=== PATIENT | male | born 1960 | race African-American/Black ===

== ENCOUNTER 2017-12-30 11:38 | Emergency (ER) | payer OTHER ==
[~2017-12-30] VITALS: Ht 175.3 cm; Wt 73.0 kg
[2017-12-30] MEDS ORDERED: SODIUM CHLORIDE 0.9% 1,000 ML IV ONE ×2 (12:07→14:39)
[2017-12-30] MEDS ORDERED: LEVETIRACETAM 500MG PREMIX 100 ML IV ONE (12:15)
[2017-12-30] MEDS ORDERED: LORAZEPAM 2MG/ML CPJ IV ONE (12:15)
[2017-12-30 12:39] LABS: BASOPHILS % 0.7 % (0.0-2.0); EOSINOPHILS % 0.4 % (0.0-5.0); HEMATOCRIT. 47.5 % (42.0-52.0); HEMOGLOBIN. 16.1 g/dL (14.0-18.0); LYMPHOCYTES % 27.2 % (20.0-50.0); MEAN CORPUSCULAR HEMOGLOBIN 36.8 pg (28.0-32.0); MEAN CORPUSCULAR VOLUME 108.5 fL (80.0-94.0); MONOCYTES % 9.4 % (2.0-8.0); NEUTROPHILS % 62.3 % (40.0-76.0); PLATELET 162 x1000/uL (130-400); RED BLOOD CELL COUNT 4.38 mill/uL (4.7-6.1); RED CELL DISTRIBUTION WIDTH 13.7 % (11.6-14.6)
[2017-12-30 12:42] LABS: CHLORIDE 97 mEq/L (98-107)
[2017-12-30 12:45] LABS: PROTHROMBIN TIME 10.6 sec (9.4-11.6)
[2017-12-30 12:47] LABS: ETHANOL BLOOD < 10 mg/dL
[2017-12-30 12:48] LABS: AMMONIA 62 uMol/L (<32)
[2017-12-30 12:51] LABS: CREATINE KINASE 398 IU/L (39-308)
[2017-12-30 12:53] LABS: CLARITY URINE CLEAR (CLEAR); COLOR URINE YELLOW (YELLOW); KETONES URINE NEGATIVE (NEGATIVE); LEUKOCYTE ESTERASE URINE NEGATIVE (NEGATIVE); NITRITE URINE NEGATIVE (NEGATIVE); OCCULT BLOOD URINE NEGATIVE (NEGATIVE); PROTEIN URINE TRACE (NEGATIVE); SPECIFIC GRAVITY URINE 1.009 (1.005-1.030); UROBILINOGEN URINE 0.2 E.U./dL (0.2-1.0)
[2017-12-30 12:58] LABS: CARBAMAZEPINE < 0.5 ug/mL (4-12); PHENOBARBITAL < 2.1 ug/mL (15.0-40.0); VALPROIC ACID < 3.0 ug/mL (50-100)
[2017-12-30 13:58] LABS: *AMPHETAMINES SCREEN URINE NEGATIVE (NEGATIVE); *BARBITURATES SCREEN URINE NEGATIVE (NEGATIVE); *BENZODIAZEPINES SCREEN URINE NEGATIVE (NEGATIVE); *COCAINE SCREEN URINE PRESUMTIVE POSITIVE (NEGATIVE); METHADONE URINE SCREEN NEGATIVE (NEGATIVE); OPIATES URINE SCREEN NEGATIVE (NEGATIVE)
[2017-12-30 13:59] LABS: CANNABINOID URINE SCREEN NEGATIVE (NEGATIVE); PHENCYCLIDINE URINE SCREEN NEGATIVE (NEGATIVE)
[2017-12-30 15:21] LABS: CREATINE KINASE 381 IU/L (39-308)
[2017-12-31] MEDS ORDERED: ACETAMINOPHEN 500MG TABLET PO ONE (00:45)
[2017-12-31 05:59] VITALS: BP 139/77
== END 2017-12-31 06:07 | disposition home or self-care (01) ==
LOC: ER 11:47
DX: T40.5X1A Poisoning by cocaine, accidental (unintentional), initial encounter (principal); G93.40 Encephalopathy, unspecified; R56.9 Unspecified convulsions; F10.239 Alcohol dependence with withdrawal, unspecified; M62.82 Rhabdomyolysis; I10 Essential (primary) hypertension; F17.210 Nicotine dependence, cigarettes, uncomplicated; Y90.9 Presence of alcohol in blood, level not specified; Y92.89 Other specified places as the place of occurrence of the external cause
CPT/HCPCS: 36415; 70450; 71045; 73060; 73070; 80053; 80156; 80165; 80184; 80185; 80305; 81003; 82140; 82550; 82962; 83880; 84443; 84484; 85025; 85610; 93005; 96361; 96365; 96375; 99285; 99406; G0482; J1953; J2060; J7030; Z7610

== ENCOUNTER 2024-01-28 11:07 | Emergency (ER) | payer MEDICARE, MEDICAID ==
[~2024-01-28] VITALS: Ht 172.7 cm; Wt 70.0 kg
[2024-01-28 11:10] VITALS: O2SAT 97
[2024-01-28 11:55] LABS: BASOPHILS % 0.4 % (0.0-2.0); DIFFERENTIAL COMMENT 0; HEMATOCRIT. 41.2 % (42.0-52.0); HEMOGLOBIN. 13.5 g/dL (14.0-18.0); MEAN CORPUSCULAR HEMOGLOBIN 33.8 pg (28.0-32.0); MEAN CORPUSCULAR HGB CONC 32.7 g/dL (31.0-37.0); MEAN CORPUSCULAR VOLUME 103.1 fL (80.0-94.0); MONOCYTES % 6.3 % (2.0-8.0); NEUTROPHILS % 81.3 % (40.0-76.0); PLATELET 230 x1000/uL (130-400); RED CELL DISTRIBUTION WIDTH 13.1 % (11.6-14.6); WHITE BLOOD COUNT 9.9 x1000/uL (4.5-11.0)
[2024-01-28 12:17] LABS: CARBON DIOXIDE 27 mEq/L (21-32); CHLORIDE 106 mEq/L (98-107); POTASSIUM 4.2 mEq/L (3.5-5.1); SODIUM 141 mEq/L (136-145)
[2024-01-28 12:18] LABS: CALCIUM 9.6 mg/dL (8.7-10.4)
[2024-01-28 12:23] LABS: CREATININE 0.7 mg/dL (0.6-1.3); GLUCOSE 102 mg/dL (70-105)
[2024-01-28 12:24] LABS: ETHANOL BLOOD < 10 mg/dL (<10)
[2024-01-28 12:57] LABS: UREA NITROGEN BLOOD < 5 mg/dL (9-23)
[2024-01-28] MEDS: SODIUM CHLORIDE 0.9% 1,000 ML IV ONE (13:19)
[2024-01-28] MEDS ORDERED: TOPUD MT (14:02)
[2024-01-28] MEDS: TRAMADOL 50MG TABLET PO ONE (14:44)
[2024-01-28] MEDS: ACETAMINOPHEN 325MG TABLET PO ONE (14:44)
[2024-01-28 14:55] VITALS: BP 136/79; PULSE 85; RESP 19; TEMP 98
== END 2024-01-28 15:08 | disposition home or self-care (01) ==
LOC: ER 11:11
DX: S80.02XA Contusion of left knee, initial encounter (principal); S80.01XA Contusion of right knee, initial encounter; T21.12XA Burn of first degree of abdominal wall, initial encounter; F10.20 Alcohol dependence, uncomplicated; I10 Essential (primary) hypertension; W05.0XXA Fall from non-moving wheelchair, initial encounter; Y93.89 Activity, other specified; Y92.89 Other specified places as the place of occurrence of the external cause; Y99.8 Other external cause status; Y90.0 Blood alcohol level of less than 20 mg/100 ml
CPT/HCPCS: 80048; 80320; 85025; 36415; 73522; 73562; 96360; 99284; J7030; G0480